=== PATIENT | male | born 1980 | race Caucasian/White ===

== ENCOUNTER 2020-03-24 00:20 | Observation (INO) ==
[2020-03-24 00:41] LABS: Basophils % 0.4 %; Eosinophils # 0.1 K/mcL (0.0-0.6); Eosinophils % 1.7 %; Hematocrit 41.5 % (37.5-50.1); Hemoglobin 13.1 g/dL (12.9-16.9); Immature Granulocytes % 0.1 % (0-4); Lymphocytes # 1.9 K/mcL (0.6-4.6); Lymphocytes % 22.8 %; Mean Corpuscular HGB Conc 31.6 g/dL (31.6-35.5); Mean Platelet Volume 11.1 fL (9.4-12.4); Monocytes # 0.5 K/mcL (0.0-1.3); Monocytes % 6.1 %; Neutrophils # 5.8 K/mcL (1.6-8.9); Platelet Count 195 K/mcL (140-400); Red Blood Count 4.51 M/mcL (4.19-5.50); Segmented Neutrophils % 68.9 %; White Blood Count 8.4 K/mcL (4.3-11.1)
[2020-03-24 00:48] LABS: INR 1.1; Prothrombin Time 12.7 Seconds (9.4-12.1)
[2020-03-24 00:50] LABS: Activated Partial Thrombo Time 34.7 Seconds (26.0-36.0)
[2020-03-24 00:56] LABS: D-Dimer < 215 ng/mLFEU (0-500)
[2020-03-24 01:04] LABS: BUN/Creatinine Ratio 15 (6-26); Blood Urea Nitrogen 13 mg/dL (6-20); Carbon Dioxide 26 mEq/L (23-29); Chloride 105 mEq/L (98-107); Creatine Kinase 223 Units/L (30-223); Glucose 153 mg/dL (70-105); Osmolality,Calculated 289 (280-300); Potassium 3.6 mEq/L (3.5-5.1); Sodium 138 mEq/L (136-145); eGFR For African Americans > 60 (> 60); eGFR For Non-African Americans > 60 (> 60)
[2020-03-24 01:05] LABS: Troponin I < 0.03 ng/mL (< 0.04)
[2020-03-24] MEDS ORDERED: Naloxone 0.4 MG/ML INJ IVP PRN (02:28)
[2020-03-24] MEDS ORDERED: *HR* Heparin 5,000 UNIT/ML VIAL SQ SCH (06:00)
[2020-03-24 09:44] LABS: Chol/HDL Ratio 3.3 (0-4.9)
[2020-03-24 09:59] LABS: Estimated Average Glucose 134 mg/dl
[2020-03-24] MEDS ORDERED: Aspirin 81 MG TAB.CHEW PO SCH (10:45)
[2020-03-24] MEDS ORDERED: lisinopriL 20 MG TABLET PO SCH (10:45)
[2020-03-24 12:21] VITALS: BP 139/90
== END 2020-03-24 12:32 | disposition left against medical advice (07) ==
LOC: EMEROOARM 00:20 → 3BNU 00:20 → SUATTDRO 01:36 → 3BNU 01:57
PROVIDERS: ADMIT Family Medicine; ATTEND Internal Medicine